=== PATIENT | female | born 1925 | race Caucasian/White ===

== ENCOUNTER 2017-07-01 19:23 | Emergency (ER) | payer OTHER ==
--- NOTE | 2017-07-01 19:30 | EDPHY ---
H & P Time Seen by Provider: 07/01/17 19:29 HPI/ROS: CHIEF COMPLAINT: Bilateral knee injury HISTORY OF PRESENT ILLNESS: Transferring from wheelchair to commode and fell hitting both knees on the ground. Transported by EMS with some pain in both knees. No other injury. Symptoms very mild at rest patient says that she really really does not have very much pain. Not associated with any other injury or head injury or loss of consciousness. REVIEW OF SYSTEMS: Eye: no change in vision ENT: no sore throat Cardiac: no chest pain or syncope Pulmonary: no cough or SOB Abdomen: no vomiting, diarrhea, abdominal pain Musculoskeletal: HPI, no back or neck pain Skin: Bilateral knee abrasions Neuro: No weakness or numbness in either foot Constitutional: no fever : no urinary symptoms A comprehensive 10 point review of systems is otherwise negative aside from elements mentioned in the history of present illness. PAST MEDICAL HISTORY: History and physical dated 12/12/2014 personally reviewed includes hypertension, hyponatremia, knee surgery, bilateral hip surgery, chronic kidney disease. Tetanus vaccine up-to-date. Social history: Nonsmoker, uses a walker. General Appearance: Alert and conversant, cooperative. Eyes: No scleral icterus. ENT, Mouth: Normal mucous membranes. Respiratory: Normal respiratory effort, breath sounds equal, lungs are clear to auscultation. Cardiovascular: Regular rate and rhythm. Gastrointestinal: Abdomen is soft and non tender. Neurological: Alert, face symmetric, normal motor and sensory in extremities. Skin: Bilateral knee abrasions Musculoskeletal: Normal range of motion of both knees, minimal tenderness over both patellar areas. Otherwise nontender in both upper extremities, clavicles, cervical thoracic and lumbar spine. Nontender pelvis and nontender in both thighs as well as both lower leg ankle and foot. Psychiatric: Not agitated. Emergency Department course/MDM: Wound care and bilateral knee x-rays. 1954: X-ray show left patellar screws and right total knee arthroplasty hardware but no acute new injury. Discharge home diagnosis bilateral knee contusions and abrasions. History is clear for mechanical fall without suggestion of syncope. Smoking Status: Former smoker Constitutional: Initial Vital Signs Temperature (C) 36.4 C 07/01/17 19:28 Heart Rate 72 07/01/17 19:28 Respiratory Rate 20 07/01/17 19:28 Blood Pressure 199/94 H 07/01/17 19:28 O2 Sat (%) 95 07/01/17 19:28 O2 Delivery Mode Room Air Allergies/Adverse Reactions: No Known Allergies Allergy (Unverified 02/14/10 02:17) Home Medications: Medication Instructions Recorded Aspirin [Aspirin 81mg (*)] 81 mg PO HS 09/28/13 Beta-Carotene(A) W-C & E/Min 1 tab PO DAILY 09/28/13 [Ocuvite] Calcium Carbonate [Pydl-Wvs-131] 1,000 mg PO DAILY 09/28/13 Pramipexole Di-HCl [Mirapex] 0.5 mg PO BID PRN 09/28/13 Vitamin E [Vitamin E 400 units] 400 units PO DAILY 09/28/13 Cholecalciferol (Vitamin D3) 5,000 unit PO DAILY 12/12/14 [Vitamin D3] Cyanocobalamin [Vitamin B12 (*)] 500 mcg PO DAILY 12/12/14 Doxycycline Hyclate [Vibramycin 100 mg PO DAILY 12/12/14 100 MG (*)] Herbals/Supplements -Info Only 1 ea PO DAILY 12/12/14 Sennosides [Senna] 8.6 mg PO HS 12/12/14 traMADol [Ultram 50 mg (*)] 100 mg PO BID PRN 12/12/14 Acetaminophen [Tylenol 325mg (*)] 650 mg PO Q4 PRN #0 tab 12/20/14 Furosemide [Lasix 20 MG (*)] 40 mg PO DAILY #0 tab 12/20/14 Polyethylene Glycol 3350 [Miralax 17 gm PO DAILY PRN #0 pkt 12/20/14 17 gm (*)] Potassium Cl [Klor-Con 20 meq (*)] 20 meq PO DAILY #0 tab 12/20/14 oxyCODONE IR [Oxycodone Ir (*)] 2.5 - 5 mg PO Q4 PRN #0 tab 12/20/14 Medical Decision Making - Diagnostics Imaging Results: Bilateral knee x-rays show hardware in place but no acute injury. Imaging: I viewed and interpreted images myself Differential Diagnosis: Differential considered including but not limited to knee dislocation, patellar fracture, knee contusion, femur or tibia fracture. Departure - Departure Disposition: Home, Routine, Self-Care Clinical Impression: Knee contusion Qualifiers: Encounter type: initial encounter Laterality: unspecified laterality Qualified Code(s): S80.00XA - Contusion of unspecified knee, initial encounter Knee abrasion Qualifiers: Encounter type: initial encounter Laterality: unspecified laterality Qualified Code(s): S80.219A - Abrasion, unspecified knee, initial encounter Condition: Good Instructions: Contusion in Adults (ED), Abrasion (ED) Referrals: Marylu Raymond MD [Medical Doctor] - As per Instructions
[2017-07-01 19:31] VITALS: RESP 20; TEMP 97.5; O2SAT 95
[2017-07-01 20:11] VITALS: BP 180/90; PULSE 70
== END 2017-07-01 20:11 | disposition home or self-care (01) ==
LOC: EDUNIT#
DX: S80.01XA Contusion of right knee, initial encounter (principal); S80.02XA Contusion of left knee, initial encounter; S80.211A Abrasion, right knee, initial encounter; S80.212A Abrasion, left knee, initial encounter; I12.9 Hypertensive chronic kidney disease with stage 1 through stage 4 chronic kidney disease, or unspecified chronic kidney disease; N18.9 Chronic kidney disease, unspecified; Z79.82 Long term (current) use of aspirin; Z87.891 Personal history of nicotine dependence; W18.09XA Striking against other object with subsequent fall, initial encounter